=== PATIENT | female | born 1990 | race Hispanic/Latino ===

== ENCOUNTER 2020-07-23 12:29 | Emergency (ER) | payer OTHER, SELFPAY ==
[2020-07-23 12:57] VITALS: BP 117/80; PULSE 82; RESP 12; TEMP 37; O2SAT 100
[2020-07-23 14:05] VITALS: BP 114/79; PULSE 61; RESP 18; TEMP 37.2; O2SAT 100
[2020-07-23 14:23] LABS: Add Urine Microscopic? YES; Appearance Urine Clear (Clear); Bilirubin Urine Negative (Negative); Blood Urine 1+ (Negative); Color Urine Straw (Yellow); Glucose Urine UA Negative (Negative); Ketones Urine Negative (Negative); Leukocyte Esterase Ur Negative LEU/UL (Negative); Nitrate Urine Negative (Negative); Protein Urine Negative (Negative); RBC Urine 0-2 /hpf (0-2); Specific Grav Ur 1.008 (1.001-1.035); Squamous Epithelial Cell Urine Moderate /hpf (Few); Urobilinogen Urine Negative mg/dL (<2.0); WBC Urine 0-3 /hpf
--- NOTE | 2020-07-23 14:26 | ED.GENADULT ---
HPI - General Adult General Chief complaint: Anxiety <Kimo Tucker PA-C - Last Filed: 07/23/20 14:32> Stated complaint: severe anxiety 3 days <Kimo Tucker PA-C - Last Filed: 07/23/20 14:32> Time Seen by Provider: 07/23/20 12:55 <Kimo Tucker PA-C - Last Filed: 07/23/20 14:32> Source: patient <Kimo Tucker PA-C - Last Filed: 07/23/20 14:32> Mode of arrival: ambulatory <Kimo Tucker PA-C - Last Filed: 07/23/20 14:32> Limitations: no limitations <Kimo Tucker PA-C - Last Filed: 07/23/20 14:32> History of Present Illness HPI narrative: Patient is a 30-year-old female who presents to emergency department for evaluation of anxiety and crying spells over the last several days unsure as to the etiology of her sadness or why this is occurring denies similar occurrence in the past notes that she did have depression but has not had these issues since the which was in the distant past. Patient denies any drug use alcohol abuse. Patient lives at home with her and child and is happy with her home situation and feels safe. Patient is unsure as to any exact stressors. Patient does not have a primary care. Patient denies any suicidal or homicidal ideation <Kimo Tucker PA-C - Last Filed: 07/23/20 14:32> Related Data Allergies/adverse reactions: Allergies Allergy/AdvReac Type Severity Reaction Status Date / Time No Known Allergies Allergy Mild Verified 05/24/17 18:40 <Kimo Tucker PA-C - Last Filed: 07/23/20 14:32> Review of Systems Review of Systems: All systems reviewed & are unremarkable except as noted in HPI and below <Kimo Tucker PA-C - Last Filed: 07/23/20 14:32> PMFSH Social History Social History: Social History (Updated 07/23/20 @ 14:29 by Kimo Tucker PA-C) Smoking status: Never smoker <Kimo Tucker PA-C - Last Filed: 07/23/20 14:32> Exam Narrative: Exam Narrative: GENERAL: Well-appearing, well-nourished, and in no acute distress. HEAD: Normocephalic, atraumatic. EYES: PERRLA and EOMI. ENT: Nares clear, no rhinorrhea or epistaxis. Mucous membranes moist. CHEST: Clear to auscultation. No respiratory distress. No wheezes rales or rhonchi HEART: Regular rate and rhythm. No murmur heard. EXTREMITIES: Normal range of motion. No edema. SKIN: Warm, dry, no rash. NEURO: No focal deficits. Alert and oriented x3. Cranial nerves II through XII grossly intact PSYCH: Normal mood and affect. <Kimo Tucker PA-C - Last Filed: 07/23/20 14:32> Course Course Emergency Course: Patient will be discharged home advised to follow with primary care for her anxiety and crying spells patient is afebrile nontoxic-appearing no distress felt appropriate for outpatient reevaluation. Patient agrees with this plan <Kimo Tucker PA-C - Last Filed: 07/23/20 14:32> Vital Signs Vital signs: Vital Signs Temperature 98.6 F 07/23/20 12:57 Pulse Rate 82 07/23/20 12:57 Respiratory Rate 12 07/23/20 12:57 Blood Pressure 117/80 07/23/20 12:57 Pulse Oximetry 100 07/23/20 12:57 Temperature 98.3 F 07/23/20 14:55 Pulse Rate 67 07/23/20 14:55 Respiratory Rate 16 07/23/20 14:55 Blood Pressure 106/74 07/23/20 14:55 Pulse Oximetry 100 07/23/20 14:55 <Kimo Tucker PA-C - Last Filed: 07/23/20 14:32> Vital Signs Temperature 98.6 F 07/23/20 12:57 Pulse Rate 82 07/23/20 12:57 Respiratory Rate 12 07/23/20 12:57 Blood Pressure 117/80 07/23/20 12:57 Pulse Oximetry 100 07/23/20 12:57 Temperature 98.3 F 07/23/20 14:55 Pulse Rate 67 07/23/20 14:55 Respiratory Rate 16 07/23/20 14:55 Blood Pressure 106/74 07/23/20 14:55 Pulse Oximetry 100 07/23/20 14:55 <Viviana Green MD - Last Filed: 07/23/20 16:01> Medical Decision Making MDM Narrative Medical decision making narrative: Patient presented with anxi
[2020-07-23 14:55] VITALS: BP 106/74; PULSE 67; RESP 16; TEMP 36.8; O2SAT 100
== END 2020-07-23 15:01 | disposition home or self-care (01) ==
PROVIDERS: Emergency Medicine Emergency Medical Services; Emergency Provider General Practice
DX: F41.9 Anxiety disorder, unspecified (principal)
CPT/HCPCS: 81001; 81025; 99283

== ENCOUNTER 2023-12-27 08:16 | Outpatient (CLI) | payer OTHER, SELFPAY ==
--- NOTE | ~2023-12-27 | US_ITS ---
EXAMINATION: US pelvic complete w TV DATE: 12/27/2023 08:48 INDICATION: Excessive and frequent menstruation. TECHNIQUE: Multiple transabdominal and transvaginal sonographic images of the pelvis were obtained. COMPARISON: Ultrasound 02/22/2014 FINDINGS: TRANSABDOMINAL ULTRASOUND: The uterus measures 8.5 x 4.6 x 5.9 cm. There is physiologic free fluid in the pelvis. TRANSVAGINAL ULTRASOUND: The endometrial complex measures 10 mm in thickness. The right ovary measures 3.0 x 1.9 x 3.1 cm. The left ovary measures 3.2 x 1.7 x 1.8 cm. There is normal vascular flow in the ovaries. IMPRESSION: 1. Normal pelvis. Reviewed, dictated and finalized at location A. IMPRESSION: 1. Normal pelvis.
== END 2023-12-27 08:17 ==
LOC: MICIMG 08:19
PROVIDERS: PCP Physician Assistant; Visit Provider Physician Assistant
DX: N92.0 Excessive and frequent menstruation with regular cycle (principal)
CPT/HCPCS: 76830; 76856

== ENCOUNTER 2024-11-15 12:08 | Emergency (ER) | payer OTHER, SELFPAY ==
[2024-11-15 12:19] VITALS: BP 116/79; PULSE 79; RESP 20; TEMP 36.8; O2SAT 99
--- NOTE | 2024-11-15 12:31 | ED.EAR ---
HPI - Ear Problem General Chief complaint: Ear Stated complaint: Left Ear Irritation Time Seen by Provider: 11/15/24 12:31 Source: patient Mode of arrival: ambulatory Limitations: no limitations History of Present Illness HPI Narrative: 34 yo F presents with muffled hearing to L ear for 4 days, pain for 1 days. no other symptoms. All systems reviewed and negative except as noted above. Related Data Home Medications ?Medication ?Instructions ?Recorded ?Confirmed ?Last Taken ?Type cetirizine 10 mg tablet (24Hour 10 mg PO DAILY PRN allergy symptoms 11/15/24 Unknown History Allergy) montelukast 10 mg tablet mg 11/15/24 Unknown History Allergies Allergy/AdvReac Type Severity Reaction Status Date / Time No Known Allergies Allergy Mild Verified 05/24/17 18:40 Review of Systems Review of Systems: CONSTITUTIONAL: Denies fever, chills, or sweats. EYES: Denies visual changes, redness, or discharge. ENT: Denies rhinorrhea, congestion, sore throat, Reports pain and muffled hearing to left ear CARDIOVASCULAR: Denies chest pain, palpitations, or edema. RESPIRATORY: Denies cough or dyspnea. GASTROINTESTINAL: Denies abdominal pain, nausea, vomiting, or diarrhea. GENITOURINARY: Denies dysuria or hematuria. SKIN: Denies rash or itching. MUSCULOSKELETAL: Denies back pain, joint pain, or myalgia. NEUROLOGIC: Denies headache, numbness, or weakness. PSYCHIATRIC: Denies anxiety or depression. All other systems reviewed are negative, except as documented in HPI. PMFSH Social History Social History (Updated 07/23/20 @ 14:29 by Kimo Tucker, PAMarlenC) Smoking status: Never smoker Comments At time of signature, agree with nursing past medical, surgical, social and family history. There is no relevant family history pertinent to the presenting complaint. Exam Narrative: GENERAL: This is a well-nourished, well-developed patient, in no apparent distress. HEAD: normocephalic, atraumatic. EYES: PERRL. Sclera clear/white. Vision is grossly intact. EARS: External ears normal, right ear canal normal. Cerumen to left ear canal . after irrigation,TMs normal without perforation. Hearing grossly intact. NOSE: External nose normal with no obvious nasal discharge, nares without redness, no rhinorrhea. THROAT: Mucous membranes moist, posterior pharynx clear. NECK: Neck supple, non-tender without lymphadenopathy, masses or thyromegaly. CARDIOVASCULAR: Regular rate and rhythm without murmurs, gallops, or rubs. RESPIRATORY: Clear to auscultation. Breath sounds equal bilaterally. No wheezes, rales, or rhonchi. SKIN: warm, Dry, intact with no suspicious lesions or rash, good texture and turgor. NEURO: awake, alert, and oriented to person, place and time. There were no obvious focal neurologic abnormalities. EXTREMITIES: No joint tenderness, effusion, or edema noted. Course Course Level of Care: Express Care Visit Vital Signs Vital signs: Vital Signs Temperature 36.8 C 11/15/24 12:19 Pulse Rate 79 11/15/24 12:19 Respiratory Rate 20 11/15/24 12:19 Blood Pressure 116/79 11/15/24 12:19 Pulse Oximetry 99 11/15/24 12:19 Oxygen Delivery Room Air 11/15/24 12:19 Temperature 36.8 C 11/15/24 12:19 Pulse Rate 79 11/15/24 12:19 Respiratory Rate 20 11/15/24 12:19 Blood Pressure 116/79 11/15/24 12:19 Pulse Oximetry 99 11/15/24 12:19 Oxygen Delivery Room Air 11/15/24 12:19 reviewed Procedures Ear Wax Removal Left Ear: Ear Wax Removal Date: 11/15/24 Ear Wax Removal Time: 12:30 Cerumenolytic Used: other ( warm water) Results: Re-examined: cerumen removed completely TM Examination: TM(s) intact, normal appearance Ear Canal Exam: atraumatic Patient Tolerated Procedure: well Complications: no problems Technique: ear canal irrigated Medical Decision Making MDM Narrative Medical decision making narrative: left ear irrigated with warm without difficulty. Cerumen removed. Patient reported hearing Back to normal after irrigation. Vital Signs Vital Signs: Vital Signs Temperature 36.8 C 11/15/24 12:19 Pulse Rate 79 11/15/24 12:19 Respiratory Rate 20 11/15/24 12:19 Blood Pressure 116/79 11/15/24 12:19 Pulse Oximetry 99 11/15/24 12:19 Oxygen Delivery Room Air 11/15/24 12:19 Temperature 36.8 C 11/15/24 12:19 Pulse Rate 79 11/15/24 12:19 Respiratory Rate 20 11/15/24 12:19 Blood Pressure 116/79 11/15/24 12:19 Pulse Oximetry 99 11/15/24 12:19 Oxygen Delivery Room Air 11/15/24 12:19 Discharge Plan Discharge Clinical Impression: Hearing loss of left ear due to cerumen impaction Patient Disposition: Home Condition: Stable Instructions: General Patient Instructions Additional Instructions: cerumen was irrigated from your left ear canal using warm water. No ear infection was noted. Patient Language: [place]ian Prescriptions: No Action montelukast 10 mg tablet cetirizine [24Hour Allergy] 10 mg tablet 10 mg PO DAILY PRN (Reason: allergy symptoms) hydroxyzine HCl 25 mg tablet 25 mg PO BID PRN (Reason: anxiety) Qty: 7 0RF Follow-up/Referrals: Gilmar,GAYATHRI Hannah [Primary Care Provider] - Time of Disposition: 12:37
== END 2024-11-15 12:38 | disposition home or self-care (01) ==
PROVIDERS: Emergency Provider Nurse Practitioner Family; PCP Physician Assistant
DX: H61.22 Impacted cerumen, left ear (principal)
CPT/HCPCS: 69209; 99212; G0463

== ENCOUNTER 2024-12-24 17:11 | Emergency (ER) | payer OTHER, SELFPAY ==
--- NOTE | 2024-12-24 17:14 | ED.EYEPROB ---
HPI - Eye Problem General Chief complaint: Eye Problems Stated complaint: red eyes Time Seen by Provider: 12/24/24 17:39 Source: patient and RN notes reviewed Mode of arrival: ambulatory Limitations: no limitations History of Present Illness HPI Narrative: 34-year-old female presents with concern for bilateral eye redness, irritation, discharge. Reports that started with the left eye which was crusted shut this morning and now both eyes are red. She reports she has had cold symptoms for 5 days. Reports she also has a worsening cough, reports she has wheezing and productive cough in the morning. She has been taking cough suppressant without relief. She denies fever, body aches, chills, sweats chief complaint: eye redness Related Data Home Medications ?Medication ?Instructions ?Recorded ?Confirmed ?Last Taken ?Type cetirizine 10 mg tablet (24Hour 10 mg PO DAILY PRN allergy symptoms 11/15/24 Unknown History Allergy) montelukast 10 mg tablet mg 11/15/24 Unknown History Allergies Allergy/AdvReac Type Severity Reaction Status Date / Time No Known Allergies Allergy Mild Verified 12/24/24 17:18 Review of Systems Review of Systems: CONSTITUTIONAL: Denies malaise, chills, sweats, or fever. EYES: Denies visual changes. Reports bilateral redness, irritation, discharge. ENT: Reports rhinorrhea, congestion, and sore throat. CARDIOVASCULAR: Denies chest pain, palpitations, or edema. RESPIRATORY: Reports cough and morning time wheezing. Denies dyspnea. GASTROINTESTINAL: Denies abdominal pain, nausea, vomiting, diarrhea SKIN: Denies rash or itching. MUSCULOSKELETAL: Denies myalgia. NEUROLOGIC: Denies headache. All systems reviewed & are unremarkable except as noted in HPI and below PMFSH Social History Social History (Updated 07/23/20 @ 14:29 by Kimo Tucker, PAAlyson) Smoking status: Never smoker Comments At time of signature, agree with nursing past medical, surgical, social and family history. There is no relevant family history pertinent to the presenting complaint Exam Narrative: GENERAL: Well-appearing, well-nourished, and in no acute distress. HEAD: Normocephalic EYES: PERRLA, bilateral sclera and conjunctiva injected. Upper lower eyelids unremarkable ENT: Nares clear, turbinates edematous and erythematous, clear discharge. Mucous membranes moist. TM pearly roberson with sharp light reflex bilaterally; no tragal tenderness. Oropharynx erythematous without lesions. Tonsils enlarged and without exudate, no drooling, no hoarseness, no trismus, uvula midline. NECK: Supple. No lymphadenopathy CHEST: Clear to auscultation, breath sounds equal. No wheezing, rhonchi, rales, or stridor. No respiratory distress, speaks in full sentences. HEART: Regular rate and rhythm. No murmur heard. SKIN: Warm, dry, no rash. NEURO: Alert and oriented x3. PSYCH: Normal mood and affect Course Course Emergency Course: Patient is aware of diagnosis, understands and agrees to treatment plan. Anticipatory guidance given. Patient agrees to follow-up as directed and is aware of reasons to seek care at the emergency department. Portions of this record may have been created with voice recognition software Level of Care: Express Care Visit Vital Signs Vital signs: Reviewed. MDM - Eye Problem MDM Narrative Medical decision making narrative: Consideration of the following conditions may be warranted for the presenting problem, they are not final diagnoses: Bacterial conjunctivitis, allergic conjunctivitis, viral conjunctivitis, foreign body, blepharitis, chalazion, hordeolum, corneal abrasion, preseptal cellulitis, orbital cellulitis. No evidence of proptosis, ophthalmoplegia, vision loss, pain with eye movement. Exam findings show no acute concerns or changes; patient is non-toxic appearing and is in no distress. Patient is appropriate for outpatient treatment and follow-up. Critical Care Time Critical Care Time Critical Care Time: No Discharge Plan Discharge Clinical Impression: Conjunctivitis, Bronchitis Patient Disposition: Home Condition: Stable Instructions: Acute Bronchitis (ED), Conjunctivitis (ED) Additional Instructions: Do not touch or rub your eye. Use a warm or cool washcloth on your eye for comfort Use eyedrops as directed Practice good handwashing and hygiene to prevent spread of infection You may take Tylenol or ibuprofen for pain Follow-up with PCP or rehab manager if condition is not improving in 2-3days. Go to the emergency room if you have pain behind your eye, pressure behind your eye, difficulty seeing, or other severe symptoms Viral illness may last between 7-21 days; antibiotics do not cure viral illness and are NOT recommended at this time. Recommend antihistamine such as Benadryl at night time and Zyrtec or Edith during the day Cough syrup may cause drowsiness; avoid driving or take it at night time. Also, recommend symptomatic treatment includes: rest, fluids, and increase humidity of the air at home. Recommend Acetaminophen as directed on the bottle to reduce fever, pain, headache. Avoid smoking/second-hand smoke. Please schedule a follow-up visit with your personal physician for further evaluation and treatment within 3-5days. If your symptoms persist, change or worsen significantly before you can contact your personal physician then please, without delay, go to the emergency department for further evaluation. Patient Language: [place] Island[place] Prescriptions: New promethazine-DM 6.25-15 mg/5 mL syrup 5 ml PO Q4-6H PRN (Reason: cough) Qty: 120 0RF polymyxin B sulf-trimethoprim 10,000 unit- 1 mg/mL drops 1 drp EACH EYE Q3H 7 Days Qty: 10 0RF Rx Instructions: while awake; do not exceed 6 doses in 24 hours methylprednisolone [Medrol (Walker)] 4 mg tablets,dose pack See Rx Instructions .ROUTE .COMPLEX Qty: 21 0RF Rx Instructions: orally per package directions No Action montelukast 10 mg tablet cetirizine [24Hour Allergy] 10 mg tablet 10 mg PO DAILY PRN (Reason: allergy symptoms) hydroxyzine HCl 25 mg tablet 25 mg PO BID PRN (Reason: anxiety) Qty: 7 0RF Follow-up/Referrals: Gilmar,GAYATHRI Hannah [Primary Care Provider] - Time of Disposition: 17:47
[2024-12-24 17:19] VITALS: BP 138/88; PULSE 90; RESP 20; TEMP 36.5; O2SAT 98
== END 2024-12-24 17:52 | disposition home or self-care (01) ==
PROVIDERS: Emergency Provider Nurse Practitioner; PCP Physician Assistant
DX: H10.9 Unspecified conjunctivitis (principal); J40 Bronchitis, not specified as acute or chronic; F41.9 Anxiety disorder, unspecified
CPT/HCPCS: 99213; G0463